=== PATIENT | male | born 1975 | race Two or more races ===

== ENCOUNTER 2021-09-02 14:35 | Emergency (ER) | payer OTHER, SELFPAY ==
[2021-09-02 14:41] VITALS: BP 123/88; PULSE 79; RESP 18; TEMP 36.6; O2SAT 99; BMI 24.1
--- NOTE | 2021-09-02 15:47 | ED.VIS.GI ---
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) Abdominal Pain/Flank Pain Onset: Days (9) Context: - (awoke w/ sx one day) Timing: Intermittent Quality: Aching Location: LLQ (and left low back) Current Severity: Gone Maximum Severity: Moderate Worsened by: - (standing at work for long periods of time) Relieved by: - (resting, ibuprofen) Nausea/Vomiting/Emesis GI Symptom: Negative for Nausea and Vomiting Diarrhea/Melena/Hematochezia GI Symptom: Negative for Diarrhea, Melena and Hematochezia Associated Symptoms Associated Symptoms: Negative for Dysuria, Frequency, Hematuria and Urgency Narrative Narrative: Healthy 45-year-old [place] patient who does not speak Hungarian, all of the history and exam were performed through a tool straightener. Patient states has been having left lower quadrant pain that radiates into his left lower back, or is also in his left lower back, for the past 9 days. He works 12 hours a day 7 days a week. 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 When he sits or rests, the pain goes away but each and every day at work while he is on his feet the pain returns. Ibuprofen helps, but it does not make it stop occurring. PFSH PFSH Medical History no medical history no medical history Home Medications ibuprofen 600 mg PO Q6H PRN 09/02/21 [History Last Taken Unknown] Allergy/AdvReac Type Severity Reaction Status Date / Time No Known Allergies Allergy Verified 09/02/21 14:43 Surgical History (Updated 09/02/21 @ 15:50 by Jeff Lazaro) History of appendectomy Social History Smoking Status: Never smoker ROS ROS ED Constitutional Constitutional ED: Denies chills or fever(s) Eyes Eyes: Denies change in vision or diplopia ENT ENT ED: Denies rhinorrhea or sore throat Cardiovascular Cardiovascular: Denies chest pain or palpitations Respiratory/Chest Respiratory/Chest: Denies cough or dyspnea Gastrointestinal Gastrointestinal: Reports as per HPI and abdominal pain; Denies diarrhea, nausea or vomiting Genitourinary Genitourinary ED: Denies dysuria or hematuria Musculoskeletal Musculoskeletal: Reports as per HPI and back pain; Denies neck pain Integumentary Denies abscess or rash Neurologic Neurologic: Denies headache(s), paresthesias or weakness Psychiatric Psychiatric: Denies anxiety or suicidal thoughts EXAM Physical Exam Const Vital Signs: 09/02/21 14:41 Temperature 97.9 F Temperature Source Temporal Pulse Rate 79 Respiratory Rate 18 Blood Pressure 123/88 H Blood Pressure Mean 99 Pulse Ox 99 Oxygen Delivery Method Room Air Positive well nourished and well developed General Appearance ED: well developed and NAD HEENT Reports moist mucous membranes normocephalic and atraumatic Eyes PERRL and EOMs intact bilaterally Neck full ROM and supple Resp normal respiratory effort and clear to auscultation bilaterally Cardio regular rate, regular rhythm and no murmurs GI non-tender and non-distended Auscultation: normoactive bowel sounds Palpation: soft Back/Spine no CVA tenderness and normal to inspection General Back: other FROM Cervical Spine: cervical ROM normal and Negative for cervical spine tenderness Thoracic Spine / Upper Back: normal to inspection and thoracic ROM normal; Negative for thoracic spinal tenderness Lumbar Spine / Lower Back: normal to inspection and lumbar ROM normal; Negative for lumbar spinal tenderness Extremity normal to inspection General Extremety ED: Negative for edema, pulses abnormal or tenderness General Extremity: Negative for edema or pulses abnormal Neuro oriented x3, CN's II-XII intact bilaterally and no sensory deficits noted Sensorium / Orientation: awake and alert Motor Exam: strength 5/5 throughout Skin no rashes or lesions noted and no wounds MDM MDM MDM Narrative Medical decision making narrative: After speaking with the patient for quite a while through the tool straightener about details of his symptoms, he eventually said something about a work note. It was then determined that he thinks the pain is muscular, and since he works so many hours 7 days a week, he feels like he needs a break from work in order to let this heal. Patient was agreeable to doing a urinalysis, it is negative for blood and infection, this is all consistent with muscular etiology, will be given a work note and advised to continue the ibuprofen as needed. Lab Data Attestation: I reviewed the patient's lab results. Labs: Laboratory Results - last 24 hr 09/02/21 16:12 Urine Color Yellow Urine Clarity Clear Urine pH 7.0 Ur Specific [place] 1.005 Urine Protein Negative Urine Glucose (UA) Normal Urine Ketones Negative Urine Occult Blood Negative Urine Nitrite Negative Urine Bilirubin Negative Urine Urobilinogen Normal Ur Leukocyte Esterase Negative Urine RBC 0 SEEN Urine WBC 0 SEEN Ur Squamous Epith Cells 0 SEEN Urine Bacteria 0 SEEN Urine Mucus 0 SEEN Discharge Plan Triage Chief Complaint: Abd Pain Other Complaint: General Illness ED Provider: Medardo Apple Dx/Rx/DC Orders Clinical Impression: Strain of flank Instructions: ED Muscle Strain, Abdomen Prescriptions: No Action ibuprofen 200 mg Tablet 600 mg PO Q6H PRN (Reason: Pain) RF: 0 Stand Alone Forms: ED Work / School Excuse Primary Care Provider: Care Physician,No Primary Referrals: Keara Calvin [NON-STAFF] - As Needed Disposition Disposition: Home, Self Care
[2021-09-02 16:22] LABS: Bacteria 0 SEEN /hpf (None Seen); Mucous, Urine 0 SEEN /hpf (<or=2+); Red Blood Cells-Urine 0 SEEN /hpf (0-5); Squamous Epithelial Cells - UA 0 SEEN /hpf (0-5); White Blood Cells 0 SEEN /hpf (0-5)
[2021-09-02 16:24] LABS: Color, Urine Yellow (Yellow); Glucose, Dipstick Normal (Normal); Ketone-Dipstick Negative (Negative); Leukocyte Esterase-Dipstick Negative /ul (Negative); Nitrite-Dipstick Negative (Negative); Occult Blood-Urine Negative /ul (Negative); Protein-Dipstick Negative (Negative); Specific Gravity, Urine 1.005 (1.002-1.030); Urine Bilirubin Dipstick Negative (Negative); Urine Clarity Clear (Clear); Urine Urobilinogen Normal (Normal)
[2021-09-02 17:37] VITALS: BP 123/56; PULSE 81; RESP 15; O2SAT 98
== END 2021-09-02 17:39 | disposition home or self-care (01) ==
LOC: ED 16:04
PROVIDERS: Emergency Provider Emergency Medicine; Visit Provider Emergency Medicine
DX: S39.011A Strain of muscle, fascia and tendon of abdomen, initial encounter (principal); X50.1XXA Overexertion from prolonged static or awkward postures, initial encounter; Y93.89 Activity, other specified; Y99.0 Civilian activity done for income or pay
CPT/HCPCS: 81001; 99282